=== PATIENT | male | born 1975 | race Caucasian/White ===

== ENCOUNTER 2019-09-12 12:42 | Emergency (ER) | payer OTHER ==
[~2019-09-12] VITALS: Ht 185.4 cm; Wt 87.1 kg
[~2019-09-12 12:42] MED LIST: MOBIC15 MG PO; XANAX1 MG PO
[2019-09-12] MEDS ORDERED: NEURONTIN100 MG PO (13:22)
[2019-09-12] MEDS ORDERED: IBU800 MG PO (13:23)
[2019-09-12] MEDS ORDERED: NORCO 10-325 T1 EACH PO (13:25)
[2019-09-12] MEDS ORDERED: MORPHINE SULFAT15 MG PO (13:26)
[2019-09-12 13:27] LABS: BASOPHILS 0.8 % (0.0-2.0); EOSINOPHILS 5.2 % (0.0-3.0); HEMATOCRIT 45.2 % (42.0-52.0); HEMOGLOBIN 15.3 gm/dL (14.0-18.0); LYMPHOCYTES 21.8 % (24.0-44.0); MCH 32.5 pg (26.0-34.0); MCHC 33.9 g/dL (28.0-37.0); MCV 95.9 fL (80.0-100.0); MONOCYTES 8.9 % (1.0-8.0); PLATELET COUNT 285 thou/uL (150-400); POLYS 63.3 % (36.0-66.0); RBC 4.72 mil/uL (4.50-6.00); RDW 14.3 % (10.5-14.5); WBC 6.4 thou/uL (4.0-11.0)
[2019-09-12] MEDS ORDERED: DULOXETINE HCL60 MG PO (13:27)
[2019-09-12 13:49] LABS: ANION GAP 7 mmol/L (7-16); BUN 14 mg/dL (7-18); CALCIUM 9.1 mg/dL (8.5-10.1); CHLORIDE 99 mmol/L (98-107); CO2 31 mmol/L (21-32); CREATININE 0.9 mg/dL (0.7-1.3); GLUCOSE 124 mg/dL (74-106); SODIUM 137 mmol/L (136-145)
[2019-09-12 14:00] LABS: ALBUMIN 3.7 g/dL (3.4-5.0); LIPASE 138 U/L (73-393); SGOT 16 U/L (15-37); SGPT 18 U/L (30-65); TOTAL BILIRUBIN 0.5 mg/dL (<0.1-1.0); TOTAL PROTEIN 8.4 g/dL (6.4-8.2); TROPONIN-I <0.06 ng/mL (<0.06)
[2019-09-12 14:20] LABS: URINE BLOOD NEGATIVE (Negative); URINE CLARITY CLEAR; URINE COLOR YELLOW; URINE GLUCOSE-RANDOM* NEGATIVE (Negative); URINE KETONES TRACE (Negative); URINE LEUKOCYTES-REFLEX NEGATIVE (Negative); URINE NITRITE-REFLEX NEGATIVE (Negative); URINE PROTEIN (DIPSTICK) TRACE (Negative); URINE SPECIFIC GRAVITY >= 1.030 (1.005-1.035)
[2019-09-12 14:25] LABS: ICTOTEST (BILI CONFIRMATORY) Negative (Negative); URINE BILIRUBIN NEGATIVE (Negative)
[2019-09-12] MEDS ORDERED: ZOFRAN ODT4 MG PO (15:07)
[2019-09-12 15:20] VITALS: BP 125/74
--- NOTE | 2019-09-13 08:14 | EKG ---
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1975 Requested By: Haley James Order Number: [id number] MD: Felipe Bradshaw Measurements Intervals [place] Rate: 93 P: 75 ND: 141 QRS: -62 QRSD: 86 T: 62 QT: 349 QTc: 435 Interpretive Statements Sinus rhythm Left axis deviation ST elev, probable normal early repol pattern No previous ECG available for comparison Electronically Signed On 09-13-2019 8:13:06 CDT by Felipe Bradshaw [email or web address] <ELECTRONICALLY SIGNED> By: Felipe Bradshaw MD, [facility] [id number] 40 Felipe Bradshaw MD, [facility] /EPI
== END 2019-09-12 15:34 | disposition home or self-care (01) ==
LOC: ER 12:42
PROVIDERS: Physician Assistant
DX: B34.9 Viral infection, unspecified (principal); E86.0 Dehydration; R11.2 Nausea with vomiting, unspecified; R05 Cough; J44.9 Chronic obstructive pulmonary disease, unspecified; F17.210 Nicotine dependence, cigarettes, uncomplicated; Z03.818 Encounter for observation for suspected exposure to other biological agents ruled out; Z79.899 Other long term (current) drug therapy; Z88.0 Allergy status to penicillin; Z88.8 Allergy status to other drugs, medicaments and biological substances